=== PATIENT | female | born 1955 | race Caucasian/White ===

== ENCOUNTER 2016-07-29 08:10 | Day surgery (SDC) | payer BC ==
[~2016-07-29] VITALS: Ht 157.5 cm; Wt 70.1 kg
== END 2016-07-29 10:48 | disposition short-term general hospital (02) ==
LOC: SURGOP 08:10
PROC: 0DJD8ZZ Inspection of Lower Intestinal Tract, Via Natural or Artificial Opening Endoscopic (ICD-10-PCS; principal; 2016-07-29)
DX: R10.9 Unspecified abdominal pain (principal); Z86.19 Personal history of other infectious and parasitic diseases; Z90.49 Acquired absence of other specified parts of digestive tract; Z88.0 Allergy status to penicillin; Z79.899 Other long term (current) drug therapy
CPT/HCPCS: J2175; J2250